=== PATIENT | male | born 1995 | race Caucasian/White ===

== ENCOUNTER 2018-08-19 06:14 | Emergency (ER) | payer SELFPAY ==
[~2018-08-19] VITALS: Ht 170.2 cm; Wt 90.7 kg
[2018-08-19] MEDS ORDERED: IPRATROPIUM NEB FS 0.5 MG/2.5 ML AMPUL.NEB ONE (06:18)
[2018-08-19] MEDS ORDERED: ALBUTEROL FS 2.5 MG/3 ML VIAL.NEB ONE (06:18)
[2018-08-19] MEDS ORDERED: predniSONE 20 MG TABLET ONE (06:22)
--- NOTE | 2018-08-19 06:27 | NUR ---
PT ALEX. C/O "HAVING SOB SINCE YESTERDAY, SAW A DR AND WAS PRESCRIBED Z-PAC BY MY PRIMARY." +SOB NOTED -N/V -DIZZY. AT BEDSIDE FOR EVAL.
[2018-08-19] MEDS ORDERED: predniSONE 20 MG TABLET PO ONE (06:30)
[2018-08-19] MEDS ORDERED: IPRATROPIUM NEB FS 0.5 MG/2.5 ML AMPUL.NEB NEB ONE (06:30)
[2018-08-19] MEDS ORDERED: ALBUTEROL FS 2.5 MG/3 ML VIAL.NEB NEB ONE (06:30)
[2018-08-19] MEDS ORDERED: ACETAMINOPHEN 325 MG TABLET PO ONE (06:30)
--- NOTE | 2018-08-19 06:36 | NUR ---
RT NOTE MD AWARE OF INCREASED HEART RATE. OK WITH ADMINISTRATION OF ALBUTEROL.
[2018-08-19] MEDS ORDERED: ACETAMINOPHEN 325 MG TABLET ONE (06:48)
[2018-08-19] MEDS ORDERED: AZITHROMYCIN 250 MG TABLET ONE (06:48)
--- NOTE | 2018-08-19 06:49 | NUR ---
FLU SWAB COLLECTED AND CALLED LAB FOR [facility]NER
[2018-08-19] MEDS ORDERED: LORAZEPAM 0.5 MG TABLET ONE (06:58)
[2018-08-19] MEDS ORDERED: AZITHROMYCIN 250 MG TABLET PO ONE (07:00)
[2018-08-19] MEDS ORDERED: LORAZEPAM 1 MG TABLET PO ONE (07:00)
--- NOTE | 2018-08-19 08:03 | NUR ---
Patient discharged to home in stable condition. Written and verbal after care instructions given. Patient verbalizes understanding of instruction.
[2018-08-19 08:04] VITALS: BP 126/68
== END 2018-08-19 08:08 | disposition home or self-care (01) ==
LOC: ER 06:18
DX: J45.901 Unspecified asthma with (acute) exacerbation (principal); J11.1 Influenza due to unidentified influenza virus with other respiratory manifestations; F17.210 Nicotine dependence, cigarettes, uncomplicated
CPT/HCPCS: 71045; 87804 ×2; 94640 ×2; 99284; A4606; J7512; 87400

== ENCOUNTER 2019-07-26 20:51 | Emergency (ER) | payer SELFPAY ==
[~2019-07-26] VITALS: Ht 170.2 cm; Wt 90.7 kg
[2019-07-26 20:51] VITALS: BP 116/67
[2019-07-26] MEDS ORDERED: ALBUTEROL FS 2.5 MG/3 ML VIAL.NEB ONE (21:20)
[2019-07-26] MEDS ORDERED: predniSONE 20 MG TABLET PO ONE (21:30)
[2019-07-26] MEDS ORDERED: ALBUTEROL FS 2.5 MG/3 ML VIAL.NEB NEB ONE (21:30)
[2019-07-26] MEDS ORDERED: predniSONE 20 MG TABLET ONE (21:35)
== END 2019-07-26 22:41 | disposition home or self-care (01) ==
LOC: ER 20:51
DX: J45.901 Unspecified asthma with (acute) exacerbation (principal); F17.200 Nicotine dependence, unspecified, uncomplicated
CPT/HCPCS: 94644; 99285; J7512

== ENCOUNTER 2019-10-05 14:43 | Emergency (ER) | payer SELFPAY ==
[~2019-10-05] VITALS: Ht 170.2 cm; Wt 90.7 kg
[2019-10-05] MEDS ORDERED: Magnesium 1GM/D5W 100ML PREMIX 200 ML IV ONE (15:07)
[2019-10-05] MEDS ORDERED: methylPREDNISolone SOD SUCC 125 MG/2ML VIAL ONE (15:14)
[2019-10-05] MEDS ORDERED: Magnesium 1GM/D5W 100ML PREMIX 100 ML IV ONE ×2 (15:14→16:24)
--- NOTE | 2019-10-05 15:26 | NUR ---
BIBMOTHER FROM HOME TO ER BED 12. AAOX4. TAQCHYPNEIC AND SOB. AMBULATORY. CAME IN FOR SOB - ASTHMA EXACERBATION FOR THE PAST 3 WEEKS. PT IS NOTED WITH BILAT LUNGS WHEEZING. O2 SAT NOTED @ 91% ON RA. PT IS ALOS TACHYCARDIC IS THE 120S. PT ERPORTS TAKING HIS ALBUTEROL INHALER AND INEFFECTIVE. MD WAS AT BEDSIDE FOR EVAL. ORDERS RECEIVED, NOTED AND CARRIED OUT. IV LINE OBTAINED ON L AC 20G. EKG BEING DONE AT BEDSIDE. MEDICATEED ORDERED. RT PAGED FOR BREATHING TX. PT ON MONITOR WILL CONTINUE TO MONITOR
[2019-10-05] MEDS ORDERED: IPRATROPIUM NEB FS 0.5 MG/2.5 ML AMPUL.NEB NEB ONE (15:30)
[2019-10-05] MEDS ORDERED: IV NS 0.9% 1,000 ML IV ONE (15:30)
[2019-10-05] MEDS ORDERED: ALBUTEROL FS 2.5 MG/3 ML VIAL.NEB NEB ONE (15:30)
[2019-10-05] MEDS ORDERED: methylPREDNISolone SOD SUCC 125 MG/2ML VIAL IV ONE (15:30)
[2019-10-05] MEDS ORDERED: ALBUTEROL FS 2.5 MG/3 ML VIAL.NEB ONE (15:34)
[2019-10-05] MEDS ORDERED: IPRATROPIUM NEB FS 0.5 MG/2.5 ML AMPUL.NEB ONE (15:34)
[2019-10-05] MEDS ORDERED: IV NS 0.9% 500 ML BAG IV ONE (17:00)
--- NOTE | 2019-10-05 17:05 | NUR ---
Patient discharged to home in stable condition. Written and verbal after care instructions given. Patient verbalizes understanding of instruction.IV removed. Catheter intact and site benign. Pressure and 4x4 applied to site. No bleeding noted. Pt ambulatory with a steady gait
[2019-10-05 18:15] VITALS: BP 109/68
== END 2019-10-05 17:00 | disposition home or self-care (01) ==
LOC: ER 14:45
DX: J45.901 Unspecified asthma with (acute) exacerbation (principal); F41.9 Anxiety disorder, unspecified; F17.210 Nicotine dependence, cigarettes, uncomplicated
CPT/HCPCS: 71045; 93005; 94644; 96365; 96375; 99285; J2930; J3475 ×2; J7030

== ENCOUNTER 2019-10-19 09:39 | Emergency (ER) | payer MEDICAID ==
[~2019-10-19] VITALS: Ht 170.2 cm; Wt 70.3 kg
--- NOTE | 2019-10-19 09:39 | NUR ---
PT BIBRA FROM HOME, WORSENING SOB X 5 DAYS. EPI GIVEN GERENTOLOGICAL PHYSIOTHERAPIST, PT IS AAOX4, NOTED RESPIRATORY DISTRESS, HOOKED TO BIOFUELS PRODUCT MANAGER, KEPT RESTED AND COMFORTABLE, WILL CONTINUE TO MONITOR.
[2019-10-19] MEDS ORDERED: Magnesium 1GM/D5W 100ML PREMIX 200 ML IV ONE (09:42)
--- NOTE | 2019-10-19 09:43 | NUR ---
AT BEDSIDE FOR EVAL.
[2019-10-19] MEDS ORDERED: methylPREDNISolone SOD SUCC 125 MG/2ML VIAL ONE (09:44)
[2019-10-19] MEDS ORDERED: Magnesium 1GM/D5W 100ML PREMIX 100 ML IV ONE ×2 (09:45→09:52)
--- NOTE | 2019-10-19 09:45 | NUR ---
IV LINE ESTABLISHED BLOOD DRAWN AND SENT TO LAB.
--- NOTE | 2019-10-19 09:50 | NUR ---
RT AT BEDSIDE FOR BREATHING TREATMENT.
[2019-10-19] MEDS ORDERED: ALBUTEROL FS 2.5 MG/0.5 ML VIAL.NEB ONE (09:54)
[2019-10-19] MEDS ORDERED: ALBUTEROL FS 2.5 MG/3 ML VIAL.NEB ONE ×2 (09:54→10:26)
[2019-10-19] MEDS ORDERED: IPRATROPIUM NEB FS 0.5 MG/2.5 ML AMPUL.NEB ONE (09:54)
--- NOTE | 2019-10-19 09:56 | NUR ---
Julissa purcell in [facility], [place] - 10/19/19 at 1018 by STACY LOOPING INSPECTOR AT [facility] FOR XRAY.
[2019-10-19] MEDS ORDERED: ACETAMINOPHEN ES 500 MG TABLET ONE (09:58)
[2019-10-19] MEDS ORDERED: methylPREDNISolone SOD SUCC 125 MG/2ML VIAL IV ONE (10:00)
[2019-10-19] MEDS ORDERED: AZITHROMYCIN 500 MG in IV D5W 250 ML IV ONE (10:00)
[2019-10-19] MEDS ORDERED: ACETAMINOPHEN ES 500 MG TABLET PO ONE (10:00)
[2019-10-19] MEDS ORDERED: ALBUTEROL FS 2.5 MG/3 ML VIAL.NEB CONTNEB ONE (10:00)
[2019-10-19 10:13] LABS: BASOPHILS # (AUTO) 0.1 /CMM (0.0-0.2); BASOPHILS % (AUTO) 0.4 % (0.0-2.0); EOSINOPHILS % (AUTO) 4.2 % (0.0-6.0); HEMATOCRIT 49 % (39-51); HEMOGLOBIN 16.3 g/dL (13.5-17.5); LYMPHOCYTES # (AUTO) 2.1 /CMM (0.8-4.8); LYMPHOCYTES % (AUTO) 10.9 % (20.0-44.0); MEAN CORPUSCULAR HGB CONC 33 g/dl (31.0-36.0); MEAN CORPUSCULAR VOLUME 94 fL (80-96); MONOCYTES # (AUTO) 1.1 /CMM (0.1-1.30); MONOCYTES % (AUTO) 5.6 % (2.0-12.0); NEUTROPHILS # (AUTO) 14.9 /CMM (1.8-8.9); NEUTROPHILS % (AUTO) 78.9 % (43.0-81.0); PLATELET COUNT (AUTO) 270 /CMM (150-450); RED BLOOD CELL COUNT(AUTO) 5.27 MIL/uL (4.5-6.0); WHITE BLOOD COUNT (AUTO) 18.9 K/uL (4.3-11.0)
--- NOTE | 2019-10-19 10:15 | NUR ---
COVID SWAB AND RAPID INFLUENZA OBTAINED AND SENT TO LAB.
--- NOTE | 2019-10-19 10:18 | NUR ---
SENIOR REACTOR OPERATOR AT BEDSIDE FOR XRAY.
[2019-10-19 10:22] LABS: CALCIUM, SERUM 9.4 mg/dL (8.5-10.1); CARBON DIOXIDE 31 mmol/L (21-32); CHLORIDE 98 mmol/L (98-107); CREATININE 1.1 mg/dL (0.6-1.3); GLUCOSE 128 mg/dL (74-106); POTASSIUM 3.8 mmol/L (3.5-5.1); SODIUM SERUM 137 mmol/L (136-145); UREA NITROGEN, BLOOD 11 mg/dL (7-18)
--- NOTE | 2019-10-19 10:26 | NUR ---
REGARDING EKG: PER MD REQUEST AWAITING FOR TREATMENT TO BE COMPLETED & PT GETS STABLIZED BEFORE DOING EKG.
[2019-10-19] MEDS ORDERED: ALBUTEROL FS 2.5 MG/3 ML VIAL.NEB NEB ONE (10:30)
[2019-10-19 10:36] LABS: ALANINE AMINOTRANSFERASE 33 U/L (12-78); ALKALINE PHOSPHATASE 62 U/L (46-116); ASPARTATE AMINOTRANSFERASE 23 U/L (15-37); B-TYPE NATRIURETIC PEPTIDE 94 PG/ML (0-125); BILIRUBIN,TOTAL 0.5 mg/dL (0.2-1.0); TOTAL PROTEIN, SERUM 8.4 g/dL (6.4-8.2)
[2019-10-19] MEDS ORDERED: MONT10TA22 PO (10:46)
[2019-10-19] MEDS ORDERED: ALBU18HF2 IH (10:46)
[2019-10-19] MEDS ORDERED: ALPR1TAB7 PO (10:46)
[2019-10-19 11:08] LABS: ABG BASE EXCESS 0.8 mmol/L; ABG OXYGEN SATURATION 90.7 % (92.0-98.5); ABG PCO2 46.8 mmHg (35.0-45.0); ABG PH 7.373 (7.350-7.450); ABG PO2 62.9 mmHg (75.0-100.0); AaDO2 139.5 mmHg; COHb 0.9 % (0.5-1.5); MetHb 0.5 % (0.0-1.5); O2Hb 89.4 % (94.0-97.0); SITE, ABG Left Radial
[2019-10-19 11:15] LABS: D-DIMER 0.37 mg/L(FEU (0.17-0.50)
[2019-10-19 11:35] LABS: CREATINE KINASE, TOTAL 306 U/L (39-308)
[2019-10-19 12:11] LABS: FERRITIN 316 ng/mL (8-388)
[2019-10-19 12:12] LABS: C-REACTIVE PROTEIN 7.4 mg/dL (0.0-0.9)
--- NOTE | 2019-10-19 12:33 | NUR ---
IV removed. Catheter intact and site benign. Pressure and 4x4 applied to site. No bleeding noted.
--- NOTE | 2019-10-19 12:33 | NUR ---
Patient does not wish to proceed with medical care recommended by Dr. BRADLEY. Patient given information related to possible complications, up to and including , which could occur as a result of leaving the hospital at this time. Patient verbalizes understanding of risks involved due to leaving against medical advice. Patient has signed AMA form.
[2019-10-19 12:34] VITALS: BP 118/77
== END 2019-10-19 12:35 | disposition left against medical advice (07) ==
LOC: ER 09:42
DX: J45.902 Unspecified asthma with status asthmaticus (principal); J44.0 Chronic obstructive pulmonary disease with (acute) lower respiratory infection; J20.9 Acute bronchitis, unspecified; D72.829 Elevated white blood cell count, unspecified; R00.0 Tachycardia, unspecified; R09.02 Hypoxemia; R06.03 Acute respiratory distress; F17.210 Nicotine dependence, cigarettes, uncomplicated; F41.9 Anxiety disorder, unspecified; Z20.828 Contact with and (suspected) exposure to other viral communicable diseases
CPT/HCPCS: 36415; 36600; 71045; 80053; 82550; 82728; 82803; 83605; 83615; 83880; 84145; 84484; 85025; 85378; 85730; 86140; 87040; 87804; 93005; 94640; 94660; 96365; 96368; 96375; 99291; C9803; J0456; J2930; J3475 ×2; U0003; J7060